=== PATIENT | female | born 2005 | race Caucasian/White ===

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

== ENCOUNTER 2023-06-12 20:45 | Emergency (ER) | payer OTHER, SELFPAY ==
[2023-06-12 21:20] VITALS: BP 122/77; PULSE 95; RESP 20; TEMP 36.8; O2SAT 98; BMI 19.7
[2023-06-12 21:51] LABS: IDNOW Serial# 6674DD1D; Strep A Nucleic Acid Negative (Negative)
--- NOTE | 2023-06-12 22:10 | ED_ITS ---
HPI - Ear Problem General Chief complaint: Ear Problems Stated complaint: cant hear, patchy throat, sob, lightheaded, headac Time Seen by Provider: 06/12/23 22:08 Source: patient Mode of arrival: ambulatory Limitations: no limitations History of Present Illness HPI Narrative: Patient complaining of pain in the left ear for last 3 days also feels like the ear is blocked no fever no chills no sore throat Related Data Previous Rx's Medication Instructions Recorded azithromycin 500 mg tablet 500 mg PO DAILY 3 days #3 tabs 06/12/23 (Zithromax) ibuprofen 600 mg tablet 600 mg PO Q6H PRN fever or pain 06/12/23 #30 tabs Allergies Allergy/AdvReac Type Severity Reaction Status Date / Time Penicillins [PENICILLINS] Allergy Unknown Palpitation Verified 06/12/23 21:19 s amoxicillin Allergy Palpitation Verified 06/12/23 21:20 s Peppers, Green Allergy Nausea Verified 06/12/23 21:19 [Green Peppers] pineapple Allergy Nausea Verified 06/12/23 21:19 Review of Systems Review of Systems: Yes all other systems are reviewed and are negative PMFSH Past Medical History Medical History Ovarian cyst Social History Social History Advance Directives: No Advance Directives Information Provided: No Physical Exam Vital Signs: Vital Signs: Last Vital Signs Temp 98.2 F 06/12/23 21:20 Pulse 95 06/12/23 21:20 Resp 20 06/12/23 21:20 BP 122/77 06/12/23 21:20 Pulse Ox 98 06/12/23 21:20 O2 Del Method Room Air 06/12/23 21:20 BMI result Body Mass Index 19.7 Const: General: cooperative, healthy appearing and comfortable HEENT: Head: Yes normal to inspection Ears: hearing grossly normal bilaterally, Abnormal EAC present (On the right side) cerumen impaction and TM abnormal (Left side) bulging, bullous, dull, erythematous and with fluid behind the TM General nose exam: Normal nares present Resp: Effort & Inspection: normal respiratory effort Auscultation: clear to auscultation bilaterally Medications Administered Discontinued Medications Generic Name Dose Route Start Last Admin Trade Name Freq PRN Reason Stop Dose Admin Azithromycin 500 mg 06/12/23 22:19 06/12/23 22:28 Azithromycin 500 Mg Tablet PO 06/12/23 22:20 500 mg ONCE ONE Administration Ibuprofen 600 mg 06/12/23 22:17 06/12/23 22:27 Ibuprofen 600 Mg Tablet PO 06/12/23 22:18 600 mg ONCE ONE Administration Lidocaine HCl 15 ml 06/12/23 22:17 06/12/23 22:28 Lidocaine Hcl Viscous 2 % 15 Ml Solution MUCOUS MEM 06/12/23 22:18 15 ml ONCE ONE Administration Medical Decision Making Medical Decision Making [facility] Narrative: Patient with left otitis media treated with Zithromax as she allergic to penicillin and amoxicillin also has right impacted cerumen which was removed Lab Data Labs: Lab Results 06/12/23 Range/Units 21:37 S. pyogenes GrpA [place] Negative (Negative) Discharge Plan Discharge Clinical Impression: Otitis media, Impacted ear wax Patient Disposition: Home, Self-Care Instructions: Ear Infection (ED) Additional Instructions: Take antibiotic as prescribed Ibuprofen for pain Keep your ears clean Prescriptions: New azithromycin [Zithromax] 500 mg tablet 500 mg PO DAILY 3 Days Qty: 3 0RF ibuprofen 600 mg tablet 600 mg PO Q6H PRN (Reason: fever or pain) Qty: 30 0RF Interventions: ED Discharge Assessment Last Done: 06/12/23 23:06 Discharge Date/Time: 06/12/23 23:07
[2023-06-12] MEDS: Ibuprofen 600 MG TABLET PO (22:27)
[2023-06-12] MEDS: Lidocaine HCl Viscous 2 % 15 ML SOLUTION MUCOUS MEM (22:28)
[2023-06-12] MEDS: Azithromycin 500 MG TABLET PO (22:28)
== END 2023-06-12 23:07 | disposition home or self-care (01) ==
PROVIDERS: Emergency Provider Internal Medicine
DX: H66.93 Otitis media, unspecified, bilateral (principal); H61.23 Impacted cerumen, bilateral
CPT/HCPCS: 69209; 87651; 99283; 99284